=== PATIENT | male | born 1980 | race Caucasian/White ===

== ENCOUNTER 2020-04-08 10:12 | Emergency (ER) | payer MEDICARE, OTHER ==
[~2020-04-08] VITALS: Ht 175 cm; Wt 101.0 kg
[~2020-04-08 10:12] MED LIST: CYCL10TA9 PO; META800T5; NAPR-243 PO; RANI150T90
[2020-04-08 10:23] VITALS: BP 125/74
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
--- NOTE | 2020-04-08 10:34 | Diagnostic Imaging Report ---
INDICATION: Injury to right hand. TECHNIQUE: AP, oblique, and lateral views of the right hand were obtained. FINDINGS: No fracture or acute bony abnormality is seen. The joint spaces are unremarkable. IMPRESSION: Negative right hand. Dictated by: Dictated on workstation # [id number]
--- OUTSIDE RECORDS SUMMARY | 2020-04-08 11:28 | XMS REPORT ---
Author Author Alex Clarke Doctor Organization [facility] Address Unknown Phone Unavailable Care Team Providers Care Sales Management Trainee Name Role Phone Migration, Doctor Unavailable Unavailable PROBLEMS Unknown Problems ALLERGIES No Information ENCOUNTERS Encounter Location Date Diagnosis [facility] [address] [facility] [id number] [address] [place] [id number] Jul, [facility] [address] [facility] [id number] [address] [place] [id number] Jul, [facility] [address] [facility] [id number] [address] [place] [id number] Jun, [facility] [address] [facility] [id number] [address] [place] [id number] Sep, [facility] [address] [facility] [id number] [address] [place] [id number] Jan, IMMUNIZATIONS No Known Immunizations SOCIAL HISTORY Never Assessed REASON FOR VISIT EMR-[facility] [place] PLAN OF CARE VITAL SIGNS MEDICATIONS Unknown Medications RESULTS No Results PROCEDURES No Known procedures INSTRUCTIONS MEDICATIONS ADMINISTERED No Known Medications
== END 2020-04-08 10:40 | disposition home or self-care (01) ==
LOC: EDUNIT# 10:12 → ER FS 10:14
DX: S60.221A Contusion of right hand, initial encounter (principal); F17.210 Nicotine dependence, cigarettes, uncomplicated; Z88.8 Allergy status to other drugs, medicaments and biological substances; W22.8XXA Striking against or struck by other objects, initial encounter
CPT/HCPCS: 73130

== ENCOUNTER → 2022-05-18 | Outpatient (CLI) | payer BC, MEDICARE | LOC: CARD 10:46 | PROVIDERS: ATTEND Internal Medicine Cardiovascular Disease | DX: R94.31 Abnormal electrocardiogram [ECG] [EKG] (principal) | CPT/HCPCS: 93306 ==